=== PATIENT | male | born 1980 | race Caucasian/White ===

== ENCOUNTER 2018-12-15 11:52 | Emergency (ER) | payer BC ==
--- NOTE | 2018-12-15 12:44 | EDM.PDOC ---
ED HPI GENERAL MEDICAL PROBLEM - General Chief Complaint: Lower Extremity Injury/Pain Stated Complaint: PAIN IN THE LEFT KNEE AFTER SURGERY ON 12/11/18 Time Seen by Provider: 12/15/18 12:00 Source of Information: Reports: Patient History Limitations: Reports: No Limitations - History of Present Illness INITIAL COMMENTS - FREE TEXT/NARRATIVE: Patient comes into the emergency department with complaints of left knee pain. Patient just recently (5 days ago) had a meniscal injury repair. Healing process has been one fairly well however the patient is still having a significant amount of pain. He has been needing to take the pain medications around the clock as prescribed. He is not due to see the surgeon again till later in the month and has PT tomorrow. He is concerned with his pain and not being able to handle PT tomorrow without any medications. He denies bearing weight on that extremity, twisting motion, fever, chills, or nausea and vomiting. Onset: Gradual Improves with: Reports: None Worsens with: Reports: None Context: Reports: Activity Left Knee Pain Score (Numeric/FACES): 4 - Related Data Allergies Allergy/AdvReac Type Severity Reaction Status Date / Time No Known Allergies Allergy Verified 12/15/18 12:54 Home Meds: Home Meds Aspirin [Halfprin] 1 tab PO DAILY 12/15/18 [History] Hydrocodone/Acetaminophen [Hydrocodon-Acetaminophen 5-325] 2 each PO Q4HR PRN [History] hydrOXYzine HCl [Atarax] 25 mg PO Q6H PRN 12/15/18 [History] hydrOXYzine HCl [Atarax] 25 mg PO Q6H PRN #15 tab 12/15/18 [Rx] Review of Systems - Review of Systems Review Of Systems: See Below Constitutional: Reports: No Symptoms Eyes: Reports: No Symptoms Ears: Reports: No Symptoms Nose: Reports: No Symptoms Mouth/Throat: Reports: No Symptoms Respiratory: Reports: No Symptoms Cardiovascular: Reports: No Symptoms GI/Abdominal: Reports: No Symptoms Genitourinary: Reports: No Symptoms Musculoskeletal: Reports: Leg Pain Skin: Reports: No Symptoms Neurological: Reports: No Symptoms Psychiatric: Reports: No Symptoms ED EXAM, GENERAL - Physical Exam Exam: See Below Exam Limited By: No Limitations General Appearance: Alert, WD/WN, No Apparent Distress Respiratory/Chest: No Respiratory Distress, Lungs Clear, Normal Breath Sounds, No Accessory Muscle Use, Chest Non-Tender Cardiovascular: Normal Peripheral Pulses, Regular Rate, Rhythm, No Edema Peripheral Pulses: 2+: Femoral (L), Femoral (R), Dorsalis Pedis (L), Dorsalis Pedis (R) GI/Abdominal: Normal Bowel Sounds, Soft, Non-Tender, No Distention, No Abnormal Bruit Extremities: Normal Inspection, Leg Pain (left leg knee- incisions approximate and healing wellno drainage noted. Swelling 2+ noted. no warmth or redness noted. ) Neurological: Alert, Oriented Psychiatric: Normal Affect, Normal Mood Skin Exam: Warm, Dry, Intact Course - Vital Signs Last Recorded V/S: Last Vital Signs Temp 37.3 C 12/15/18 12:46 Pulse 109 H 12/15/18 12:46 Resp 18 12/15/18 12:46 BP 134/83 12/15/18 12:46 Pulse Ox 96 12/15/18 12:46 - Orders/Labs/Meds Labs: Laboratory Tests 12/15/18 12/15/18 Range/Units 12:32 12:32 WBC 8.0 (4.0-10.0) x10^3/uL RBC 3.93 L (4.5-6.0) x10^6/uL Hgb 11.8 L (14.0-18.0) g/dL Hct 35.2 L (40.0-52.0) % MCV 89.6 (78.0-93.0) fL MCH 30.0 (26.0-32.0) pg MCHC 33.5 (32.0-36.0) g/dL RDW Coeff of Sylvester 12.8 (10.0-15.0) % Plt Count 291 (130-400) x10^3/uL Neut % (Auto) 68.8 (50.0-80.0) % Lymph % (Auto) 19.3 L (25.0-50.0) % [place] % (Auto) 9.2 (2.0-11.0) % Eos % (Auto) 2.5 (0.0-4.0) % Baso % (Auto) 0.2 (0.2-1.2) % Sodium 139 (136-145) mmol/L Potassium 4.2 (3.5-5.1) mmol/L Chloride 100 (98-107) mmol/L Carbon Dioxide 32 (21-32) mmol/L Anion Gap 11.2 (10-20) mmol/L BUN 15 (7-18) mg/dL Creatinine 0.9 (0.70-1.30) mg/dL Est Cr Clr Drug Dosing TNP Estimated GFR (MDRD) > 60 Glucose 110 H (74-106) mg/dL Calcium 9.8 (8.5-10.1) mg/dL Corrected Calcium 10.52 H (8.5-10.1) mg/dL Total Bilirubin 0.4 (0.2-1.0) mg/dL AST 35 (15-37) U/L ALT 48 (16-63) U/L Alkaline Phosphatase 81 (46-116) U/L Total Protein 7.3 (6.4-8.2) g/dL Albumin 3.1 L (3.4-5.0) g/dL Globulin 4.2 Albumin/Globulin Ratio 0.74 Departure - Departure Time of Disposition: 13:10 Disposition: Home, Self-Care 01 Clinical Impression: Post-operative pain - Discharge Information *PRESCRIPTION DRUG MONITORING PROGRAM REVIEWED*: Not Applicable *COPY OF PRESCRIPTION DRUG MONITORING REPORT IN PATIENT AGUEDA: Not Applicable Prescriptions: hydrOXYzine HCl [Atarax] 25 mg PO Q6H PRN #15 tab PRN Reason: Pain Instructions: Pain Relief Preoperatively and Postoperatively, Acetaminophen; Hydrocodone tablets or capsules, Hydroxyzine capsules or tablets Forms: ED Department Discharge Additional Instructions: 1. rest 2. keep leg elevated as much as possible 3. Call and speak to ortho regarding the pain 4. Continue all instructions per ortho regarding post op care and management 5. Take pain medication as needed for pain 6. Ice left leg a min of 3 times a day for 20 mins daily. 7. Call with any questions or concerns. - Assessment/Plan Assessment:: 1. Left leg pain post surgical intervention Plan: 1. Labs completed in ER. Results reviewed with the patient 2. pt did take a pain pill prior to arrival. pain under control currently 3. leg elevated while in ER 4. Medication refill given to patient. Education provided this will be a one time fill no refills and he will need to follow up with PCP/surgeon for herb counselor management. 5. All questions and concerns addressed prior to discharge
[2018-12-15 12:58] LABS: CHLORIDE,CL 100 mmol/L (98-107); SODIUM,NA 139 mmol/L (136-145)
[2018-12-15 12:59] LABS: ANION GAP 11.2 mmol/L (10-20)
== END 2018-12-15 13:20 | disposition home or self-care (01) ==
LOC: VM.ED 11:52
DX: G89.18 Other acute postprocedural pain (principal); M25.562 Pain in left knee; Z79.899 Other long term (current) drug therapy; Z98.890 Other specified postprocedural states
CPT/HCPCS: 36415; 80053; 85025; 99283